=== PATIENT | female | born 1960 | race Caucasian/White ===

== ENCOUNTER → 2017-04-08 | Outpatient (CLI) | payer BC ==
[~2017-04-08] MED LIST: ATARAX PO; ATENOLOL PO; BACTRIM DS TABL1 TA1 PO; CELEBREX PO; CLINDAMYCIN HC300 MG PO; IBUPROFEN800 MG PO; KEFLEX500 MG PO; MOTRIN600 M1 PO; NAPROSYN500 MG PO; PREDNISONE50 MG PO; SYNTHROID PO; ZOLOFT PO
--- NOTE | ~2017-04-08 | CR173 ---
[facility] A Service of [facility] RADIOLOGY TEXT RESULTS PATIENT: LUCITA ROSS LOCATION: [facility] : 62 UNIT #: [id number] AGE: [address]: BLADE LIU SEX: F ORDER DR: [id number] [facility] [address] [place], [place] [address] [id number] O MR#: [id number] Acc #: [id number] NAME: LUCITA ROSS : 1960 SEX: F STUDY DATE/TIME: 04/08/2017 15:37 UNIT: [facility] ROOM: STUDY DESCRIPTION: CR Knee 3 Views Rt Attending Physician: Sharita Chan Referring Physician: Sharita Chan Ordering Physician: Sharita Chan Primary Care Physician: Alondra Park M.D. MEDICAL IMAGING REPORT This report is preliminary unless electronic signature is present EXAM Three views right knee INDICATION Right knee pain and swelling for 4 days. No known trauma. FINDINGS No acute fracture or subluxation of the right knee is identified. There are some mild degenerative changes noted. I do think the patient has a small suprapatellar effusion. IMPRESSION No acute fracture or subluxation identified; however, the patient does appear to have a small suprapatellar effusion. Dictated by... Roma Escudero M.D. THIS IS AN ELECTRONICALLY VERIFIED REPORT Roma Escudero M.D. at 04/10/2017 10:48 AM SAMIA/carson TD: 04/09/2017 12:17 JOB #: [id number] MEDICAL IMAGING REPORT Page 1 of 1 COPY
== END | disposition home or self-care (01) ==
LOC: CRAD 15:21
DX: M25.561 Pain in right knee (principal)
CPT/HCPCS: 73562